=== PATIENT | female | born 1955 | race Caucasian/White ===

== ENCOUNTER 2016-08-22 10:06 | Inpatient (IN) | payer OTHER ==
[~2016-08-22] VITALS: Ht 165.1 cm; Wt 91.9 kg
[~2016-08-22 10:06] MED LIST: ASPI-496 PO; ASPI-621 PO; ASPI-650 PO; ATOR80TA75 PO; CARV12.543 PO; CARV6.252 PO; CEFD300C37 PO; CHOL10003 PO; CLOP75TA22 PO; ESOM20CA PO; FURO-92 PO; FURO-93 PO; HYDR12.53 PO; INSU100C5 SQ-INSULIN; INSU100V8 SQ; LANTUS SC; LINA5TAB PO; LISI-167 PO; LISI-170 PO; MAGN400T26 PO; METF100010 PO; METF750T2 PO; METO50TA82 PO; METR500T PO; NITR0.4T SL; OMEP20CA9 PO; ONDA4TAB10 PO; OXYC1TAB8 PO; ROSU40TA PO; SIMV40TA PO; SPIR50TA PO; VALS160T3 PO; [UNRECOGNIZED DRUG - OTHER]
[2016-08-22] MEDS ORDERED: ONDANSETRON 2MG/ML, 2ML ONE (10:52)
[2016-08-22] MEDS ORDERED: MORPHINE SULFATE 4 MG/ML, 1ML ONE (10:52)
[2016-08-22] MEDS ORDERED: SODIUM CHLORIDE 0.9% 1,000ML IVBOLUS ONE (11:00)
[2016-08-22] MEDS ORDERED: MORPHINE SULFATE 4 MG/ML, 1ML IVPush PRN (11:00)
[2016-08-22] MEDS ORDERED: ONDANSETRON 2MG/ML, 2ML IVPush ONE (11:00)
[2016-08-22] MEDS ORDERED: SODIUM CHLORIDE FLUSH 10ML SYR IVF ONE (11:00)
[2016-08-22 11:35] LABS: BLOOD UREA NITROGEN 58 mg/dL (7-18)
[2016-08-22 11:38] LABS: ASPARTATE AMINO TRANSFERASE 13 U/L (15-37)
[2016-08-22] MEDS ORDERED: SODIUM CHLORIDE 0.9% 1,000 ML IV ONE (12:11)
[2016-08-22] MEDS ORDERED: CALCIUM CHLORIDE 10%, 10ML SYR ONE (12:26)
[2016-08-22] MEDS ORDERED: SODIUM BICARBONATE 1 MEQ/ML, 50ML VIAL ONE (12:26)
[2016-08-22] MEDS ORDERED: DEXTROSE 50%, 50ML VIAL ONE (12:26)
[2016-08-22] MEDS ORDERED: SODIUM POLYSTYRENE SULFONATE ORAL SUSP ONE (12:26)
[2016-08-22] MEDS ORDERED: INSULIN REGULAR 100 UNITS/ML, 3ML VIAL ONE (12:26)
[2016-08-22] MEDS ORDERED: SODIUM BICARB 8.4%, 50ML SYRINGE IVPush ONE (12:30)
[2016-08-22] MEDS ORDERED: SODIUM POLY SULFONATE UDC 15 GM/60 ML PO ONE (12:30)
[2016-08-22] MEDS ORDERED: DEXTROSE 50%, 50ML SYRINGE IVPush ONE (12:30)
[2016-08-22] MEDS ORDERED: ALBUTEROL 0.5%, 20ML NPPB ONE (12:30)
[2016-08-22] MEDS ORDERED: INSULIN REGULAR 100 UNITS/ML, 3ML VIAL IVPush ONE (12:30)
[2016-08-22] MEDS ORDERED: CALCIUM CHLORIDE 10%, 10ML SYR IVPush ONE (12:30)
[2016-08-22] MEDS ORDERED: LISI-167 PO (14:56)
[2016-08-22] MEDS ORDERED: FURO-92 PO (14:58)
[2016-08-22] MEDS ORDERED: SPIR50TA2 PO (14:58)
[2016-08-22] MEDS ORDERED: FURO-93 PO (14:58)
[2016-08-22] MEDS ORDERED: NITROGLYCERIN 0.4 MG BOTTLE (25 TABS) SL PRN (16:30)
[2016-08-22 16:48] VITALS: BP 106/68
[2016-08-22] MEDS ORDERED: ONDANSETRON 2MG/ML, 2ML IVPush PRN (17:00)
[2016-08-22] MEDS ORDERED: PROMETHAZINE 25 MG/ML, 1ML IM PRN (17:00)
[2016-08-22] MEDS: INSULIN ASPART 100 UNITS/ML, PEN SQ-INSULIN SCH ×2 (17:20→20:08)
[2016-08-22] MEDS: SODIUM CHLORIDE 0.9% 1,000 ML IV SCH ×2 (17:21→20:29)
[2016-08-22] MEDS: CARVEDILOL 6.25 MG TABLET PO SCH (17:58)
[2016-08-22] MEDS: HEPARIN 5,000 UNITS/ML, 1ML SQ SCH (17:58)
[2016-08-22 20:16] VITALS: BP 103/66
[2016-08-22] MEDS: ATORVASTATIN 80 MG TABLET PO SCH (20:25)
[2016-08-22] MEDS: ACETAMINOPHEN 325 MG TABLET PO PRN (22:10)
[2016-08-22] MEDS: ONDANSETRON ODT 4 MG PO PRN (22:11)
[2016-08-23 00:50] VITALS: BP 104/70
[2016-08-23] MEDS: HEPARIN 5,000 UNITS/ML, 1ML SQ SCH ×3 (01:18→17:29)
[2016-08-23 05:46] VITALS: BP 106/62
[2016-08-23] MEDS: CARVEDILOL 6.25 MG TABLET PO SCH ×2 (05:53→17:30)
[2016-08-23 06:21] LABS: ASPARTATE AMINO TRANSFERASE 13 U/L (15-37); BLOOD UREA NITROGEN 49 mg/dL (7-18)
[2016-08-23] MEDS: INSULIN ASPART 100 UNITS/ML, PEN SQ-INSULIN SCH ×4 (07:00→21:13)
[2016-08-23 08:02] VITALS: BP 99/65
[2016-08-23] MEDS: MAGNESIUM OXIDE 400 MG TABLET PO SCH (09:38)
[2016-08-23] MEDS: ASPIRIN 81 MG TABLET EC PO SCH (09:38)
[2016-08-23] MEDS: CHOLECALCIFEROL 1,000 UNIT TABLET PO SCH (09:39)
[2016-08-23] MEDS: CLOPIDOGREL 75 MG TABLET PO SCH (09:39)
[2016-08-23 12:51] VITALS: BP 117/71
[2016-08-23 16:15] LABS: BLOOD UREA NITROGEN 46 mg/dL (7-18)
[2016-08-23] MEDS: SODIUM ACETATE 75 MEQ in SODIUM CHLORIDE 0.45% 1,000 ML IV SCH (16:35)
[2016-08-23] MEDS ORDERED: DEXTROSE 50%, 50ML SYRINGE IVPush ONE (18:30)
[2016-08-23] MEDS ORDERED: INSULIN REGULAR 100 UNITS/ML, 3ML VIAL IVPush ONE (18:30)
[2016-08-23] MEDS ORDERED: CALCIUM GLUCONATE 4.6 MEQ in SODIUM CHLORIDE 0.9% 50 ML IV ONE (18:30)
[2016-08-23] MEDS ORDERED: INSULIN REGULAR 100 UNITS/ML, 3ML VIAL IVPush SCH (18:30)
[2016-08-23] MEDS ORDERED: SODIUM CHLORIDE 0.9% 1,000 ML IV SCH (18:30)
[2016-08-23 18:36] VITALS: BP 110/69
[2016-08-23] MEDS: ATORVASTATIN 80 MG TABLET PO SCH (19:52)
[2016-08-24 00:48] VITALS: BP 108/66
[2016-08-24] MEDS: HEPARIN 5,000 UNITS/ML, 1ML SQ SCH ×3 (01:02→17:19)
[2016-08-24 05:39] VITALS: BP 133/74
[2016-08-24] MEDS: CARVEDILOL 6.25 MG TABLET PO SCH ×2 (05:41→17:20)
[2016-08-24 05:44] LABS: BLOOD UREA NITROGEN 41 mg/dL (7-18)
[2016-08-24] MEDS: INSULIN ASPART 100 UNITS/ML, PEN SQ-INSULIN SCH ×4 (07:00→21:07)
[2016-08-24 07:14] VITALS: BP 117/62
[2016-08-24] MEDS: SODIUM ACETATE 75 MEQ in SODIUM CHLORIDE 0.45% 1,000 ML IV SCH (08:00)
[2016-08-24] MEDS: MAGNESIUM OXIDE 400 MG TABLET PO SCH (08:37)
[2016-08-24] MEDS: ASPIRIN 81 MG TABLET EC PO SCH (08:37)
[2016-08-24] MEDS: CLOPIDOGREL 75 MG TABLET PO SCH (08:37)
[2016-08-24] MEDS: CHOLECALCIFEROL 1,000 UNIT TABLET PO SCH (08:38)
[2016-08-24] MEDS ORDERED: FUROSEMIDE 20 MG/2 ML IV ONE (10:00)
[2016-08-24] MEDS: SODIUM BICARBONATE 650 MG TABLET PO SCH ×2 (10:55→21:06)
[2016-08-24 12:49] LABS: POTASSIUM,URINE RANDOM 9 mmol/L
[2016-08-24 13:43] VITALS: BP 121/66
[2016-08-24 15:23] LABS: BLOOD UREA NITROGEN 40 mg/dL (7-18)
[2016-08-24 19:16] VITALS: BP 110/67
[2016-08-24] MEDS: ATORVASTATIN 80 MG TABLET PO SCH (21:06)
[2016-08-25] MEDS: HEPARIN 5,000 UNITS/ML, 1ML SQ SCH ×3 (00:49→16:28)
[2016-08-25 01:58] VITALS: BP 126/80
[2016-08-25 05:43] VITALS: BP 118/51
[2016-08-25] MEDS: CARVEDILOL 6.25 MG TABLET PO SCH ×2 (05:47→17:42)
[2016-08-25 05:55] LABS: BLOOD UREA NITROGEN 38 mg/dL (7-18)
[2016-08-25] MEDS: INSULIN ASPART 100 UNITS/ML, PEN SQ-INSULIN SCH ×4 (07:00→20:16)
[2016-08-25 07:45] VITALS: BP 118/50
[2016-08-25] MEDS: MAGNESIUM OXIDE 400 MG TABLET PO SCH (08:06)
[2016-08-25] MEDS: CHOLECALCIFEROL 1,000 UNIT TABLET PO SCH (08:06)
[2016-08-25] MEDS: SODIUM BICARBONATE 650 MG TABLET PO SCH ×2 (08:06→20:16)
[2016-08-25] MEDS: ASPIRIN 81 MG TABLET EC PO SCH (08:06)
[2016-08-25] MEDS: CLOPIDOGREL 75 MG TABLET PO SCH (08:06)
[2016-08-25] MEDS ORDERED: FUROSEMIDE 40 MG TABLET PO SCH (10:30)
[2016-08-25] MEDS: SODIUM CHLORIDE 0.9% 1,000 ML IV SCH ×2 (11:37→19:08)
[2016-08-25 13:40] VITALS: BP 99/63
[2016-08-25 17:41] VITALS: BP 116/56
[2016-08-25 19:40] VITALS: BP 106/67
[2016-08-25] MEDS: ATORVASTATIN 80 MG TABLET PO SCH (20:15)
[2016-08-26] MEDS: ACETAMINOPHEN 325 MG TABLET PO PRN (00:14)
[2016-08-26] MEDS: HEPARIN 5,000 UNITS/ML, 1ML SQ SCH ×4 (01:00→17:00)
[2016-08-26 03:08] VITALS: BP 105/61
[2016-08-26 05:37] LABS: BLOOD UREA NITROGEN 46 mg/dL (7-18)
[2016-08-26 05:49] LABS: ASPARTATE AMINO TRANSFERASE 23 U/L (15-37)
[2016-08-26 07:16] VITALS: BP 144/72
[2016-08-26] MEDS: INSULIN ASPART 100 UNITS/ML, PEN SQ-INSULIN SCH ×4 (08:54→21:32)
[2016-08-26] MEDS: CHOLECALCIFEROL 1,000 UNIT TABLET PO SCH (08:55)
[2016-08-26] MEDS: MAGNESIUM OXIDE 400 MG TABLET PO SCH (08:56)
[2016-08-26] MEDS: CLOPIDOGREL 75 MG TABLET PO SCH (08:56)
[2016-08-26] MEDS: CARVEDILOL 6.25 MG TABLET PO SCH ×2 (08:56→17:27)
[2016-08-26] MEDS: ASPIRIN 81 MG TABLET EC PO SCH (08:56)
[2016-08-26] MEDS: SODIUM BICARBONATE 650 MG TABLET PO SCH ×2 (08:56→21:31)
[2016-08-26] MEDS: FUROSEMIDE 40 MG TABLET PO SCH (08:56)
[2016-08-26] MEDS: ONDANSETRON ODT 4 MG PO PRN (08:57)
[2016-08-26] MEDS ORDERED: LOPERAMIDE 2 MG CAPSULE PO PRN (11:30)
[2016-08-26] MEDS ORDERED: LOPERAMIDE 2 MG CAPSULE PO ONE (11:30)
[2016-08-26 14:10] VITALS: BP 116/71
[2016-08-26 20:00] VITALS: BP 125/83
[2016-08-26] MEDS: ATORVASTATIN 80 MG TABLET PO SCH (21:31)
[2016-08-27] MEDS: HEPARIN 5,000 UNITS/ML, 1ML SQ SCH ×4 (01:00→16:56)
[2016-08-27 02:00] VITALS: BP 142/80
[2016-08-27 03:23] LABS: BLOOD UREA NITROGEN 51 mg/dL (7-18)
[2016-08-27] MEDS ORDERED: MAGNESIUM SULFATE PMX 2GM/50ML 50 ML IV ONE (05:00)
[2016-08-27] MEDS: CARVEDILOL 6.25 MG TABLET PO SCH ×2 (05:24→17:55)
[2016-08-27] MEDS: INSULIN ASPART 100 UNITS/ML, PEN SQ-INSULIN SCH ×4 (09:03→21:54)
[2016-08-27] MEDS: CLOPIDOGREL 75 MG TABLET PO SCH (09:05)
[2016-08-27] MEDS: ASPIRIN 81 MG TABLET EC PO SCH (09:05)
[2016-08-27] MEDS: MAGNESIUM OXIDE 400 MG TABLET PO SCH (09:05)
[2016-08-27] MEDS: SODIUM BICARBONATE 650 MG TABLET PO SCH ×2 (09:05→21:46)
[2016-08-27] MEDS: CHOLECALCIFEROL 1,000 UNIT TABLET PO SCH (09:05)
[2016-08-27] MEDS: FUROSEMIDE 40 MG TABLET PO SCH (09:07)
[2016-08-27 12:56] VITALS: BP 168/85
[2016-08-27 19:04] VITALS: BP 122/74
[2016-08-27] MEDS: ATORVASTATIN 80 MG TABLET PO SCH (21:46)
[2016-08-28] MEDS: HEPARIN 5,000 UNITS/ML, 1ML SQ SCH ×4 (01:00→17:00)
[2016-08-28 01:27] VITALS: BP 111/62
[2016-08-28] MEDS: CARVEDILOL 6.25 MG TABLET PO SCH ×2 (05:35→18:31)
[2016-08-28 06:07] LABS: BLOOD UREA NITROGEN 62 mg/dL (7-18)
[2016-08-28 07:40] VITALS: BP 104/73
[2016-08-28] MEDS: INSULIN ASPART 100 UNITS/ML, PEN SQ-INSULIN SCH ×3 (08:23→16:00)
[2016-08-28] MEDS: CLOPIDOGREL 75 MG TABLET PO SCH (09:05)
[2016-08-28] MEDS: MAGNESIUM OXIDE 400 MG TABLET PO SCH (09:05)
[2016-08-28] MEDS: FUROSEMIDE 40 MG TABLET PO SCH (09:05)
[2016-08-28] MEDS: CHOLECALCIFEROL 1,000 UNIT TABLET PO SCH (09:06)
[2016-08-28] MEDS: ASPIRIN 81 MG TABLET EC PO SCH (09:06)
[2016-08-28] MEDS: SODIUM BICARBONATE 650 MG TABLET PO SCH (09:06)
[2016-08-28 15:28] VITALS: BP 122/80
== END 2016-08-28 19:23 | disposition home or self-care (01) | DRG 640 ==
LOC: ED 11:27 → EDIP 14:45 → 4WST 16:18
PROVIDERS: ADMIT Hospitalist; ATTEND Internal Medicine
DX: E87.5 Hyperkalemia (principal); N17.0 Acute kidney failure with tubular necrosis; I13.0 Hypertensive heart and chronic kidney disease with heart failure and stage 1 through stage 4 chronic kidney disease, or unspecified chronic kidney disease; I50.42 Chronic combined systolic (congestive) and diastolic (congestive) heart failure; R19.7 Diarrhea, unspecified; E87.1 Hypo-osmolality and hyponatremia; E87.2 Acidosis; D35.02 Benign neoplasm of left adrenal gland; E11.22 Type 2 diabetes mellitus with diabetic chronic kidney disease; E11.42 Type 2 diabetes mellitus with diabetic polyneuropathy; E78.5 Hyperlipidemia, unspecified; E86.0 Dehydration; I44.7 Left bundle-branch block, unspecified; I25.10 Atherosclerotic heart disease of native coronary artery without angina pectoris; I73.9 Peripheral vascular disease, unspecified; K22.70 Barrett's esophagus without dysplasia; K26.9 Duodenal ulcer, unspecified as acute or chronic, without hemorrhage or perforation; K57.30 Diverticulosis of large intestine without perforation or abscess without bleeding; K58.9 Irritable bowel syndrome, unspecified; N18.3 Chronic kidney disease, stage 3 (moderate); Z72.0 Tobacco use; I25.2 Old myocardial infarction; Z79.4 Long term (current) use of insulin; Z86.73 Personal history of transient ischemic attack (TIA), and cerebral infarction without residual deficits; Z95.5 Presence of coronary angioplasty implant and graft; Z90.89 Acquired absence of other organs; Z88.8 Allergy status to other drugs, medicaments and biological substances; Z79.82 Long term (current) use of aspirin
CPT/HCPCS: 36415; 74176; 80048; 80053; 81001; 82088; 82436; 82962; 83690; 83735; 84100; 84133; 84244; 84300; 84443; 85025; 87086; 87324; 89055; 93005; 96361; 96374; 96375; J0610; J1644; J1815; J2405; Q0162; J1940; J3475; J7030